=== PATIENT | male | born 1950 | race Caucasian/White ===

== ENCOUNTER 2019-08-27 23:39 | Emergency (ER) | payer MEDICARE, OTHER ==
[~2019-08-27] VITALS: Ht 177.8 cm; Wt 99.8 kg
[~2019-08-27 23:39] MED LIST: ATORVASTATIN CA20 MG; CIPRO500 MG PO; CRESTOR20 MG; ESIDRIX25 MG; FLAGYL500 MG PO; LANTUS 3ML100 UNITS/; LANTUS100 UNITS/; LOPRESSOR25 MG PO; NEXIUM40 MG; OMEGA-3 ACID ETH1 GM; PROGRAF1 MG; TACROLIMUS0.5 MG; VASCEPA1 GM; ZESTRIL2.5 MG PO; ZOFRAN4 MG SL; ZORTRESS0.5 MG
--- OUTSIDE RECORDS SUMMARY | 2019-08-27 23:42 | XMS REPORT ---
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 Allergies, Adverse Reactions, Alerts This patient has no known allergies or adverse reactions. Medications This patient has no known medications. Results Test Description Test Time Test Comments Text Results Atomic Results Result Comments CT ABDOMEN/PELVIS W 2019-07-12 13:48:00 [place] [id number] [place] [id number] Patient Name: CHRISTOPHER PARTIDA MR #: [id number] : 1950 Age/Sex: 69/M Req #: [id number] Adm Physician: Ordered by: KIMMIE GALVAN DO Report #: [id number] Location: ER Room/Bed: Procedure: [id number] CT/CT ABDOMEN/PELVIS W Exam Date: Exam Time: REPORT STATUS: Signed CT scan of the abdomen and pelvis. Medical history: Diarrhea. Comparison study: None available. Technique: Contiguous focal slices were acquired through the abdomen and pelvis post demonstration of intravenous contrast. No oral contrast was administered. This exam was performed according to our department dose optimization program which includes automated exposure control, adjustment of the mA and/or kV according to the patient's size and/or use of iterative reconstruction technique. Findings: Atelectatic changes in the lung bases. There is a 2 mm nodule in the right lower lobe on image 8 for which no imaging follow-up is recommended in a low risk patient. The liver demonstrates atrophic changes in the left lobe with focal mild to moderate intrahepatic biliary dilatation within this lobe. The portal vein is patent measuring 1.4 cm. The gallbladder is absent. The CBD is normal in caliber. The spleen, pancreas, adrenal glands and kidneys are unremarkable. There are no dilated loops of bowel seen to suggest obstruction. However, multiple loops of bowel are fluid-filled most suggestive of an enterocolitis. A normal appendix is seen. There is no free fluid or free air. Aorta is normal in caliber. Atherosclerosis is seen. No suspicious adenopathy is noted. Bilateral small fat-containing 1 hernias are seen. Postsurgical changes are seen anteriorly related to ventral hernia repair. A 3.5 x 2.1 cm area of omental infarction is seen anteriorly. Seeds are seen in the prostate gland. Bone windows demonstrate degenerative changes. Impression: 1. Atrophic changes in the left lobe of the liver with mild to moderate biliary dilatation within this lobe. No definite cause is seen. This may be as result of a prior vascular injury. Clinical correlation is recommended. If there is outside imaging available, comparison could be made to document stability. 2. Status post cholecystectomy. 3. Fluid-filled loops of bowel with no definite evidence of obstruction. This can be seen with an enterocolitis. Signed by: Benjamin Odom MD on 07/12/2019 1:54 PM Dictated By: BENJAMIN ODOM MD [id number] Transcribed By: QUNITEN on 07/12/19 8001 COPY TO: KIMMIE GALVAN DO
[2019-08-28] MEDS ORDERED: OXYMETAZOLINE HCL 0.05% NAS 1 SPRAY BTL ONE ×2 (00:08→00:15)
[2019-08-28 01:54] VITALS: BP 144/81
== END 2019-08-28 01:59 | disposition home or self-care (01) ==
LOC: ER 23:39
DX: R04.0 Epistaxis (principal)
CPT/HCPCS: 99282

== ENCOUNTER 2021-09-24 15:34 | Emergency (ER) | payer MEDICARE, OTHER ==
[~2021-09-24] VITALS: Ht 177.8 cm; Wt 99.8 kg
[2021-09-24] MEDS ORDERED: SODIUM CHLORIDE 0.9% 1000ML 1,000 ML IV STA (15:46)
[2021-09-24] MEDS ORDERED: ONDANSETRON HCL INJ 2MG/ML 2ML 2 MG/ML VIAL IV STA (15:46)
[2021-09-24 16:09] LABS: BASOPHILS % 0.2 % (0.0-1.0); EOSINOPHILS % 0.7 % (0.0-6.0); HEMATOCRIT 41.6 % (38.2-49.6); HEMOGLOBIN 13.6 g/dL (14.0-18.0); LYMPHOCYTES # (AUTO) 0.6 (1.0-3.2); LYMPHOCYTES % 9.5 % (18.0-39.1); MEAN CORPUSCULAR HEMOGLOBIN 29.4 pg (28-32); MEAN CORPUSCULAR HGB CONC 32.7 g/dL (31-35); MONOCYTES # (AUTO) 0.7 (0.2-0.8); NEUTROPHILS # (AUTO) 4.8 (2.1-6.9); NEUTROPHILS % 78.3 % (38.7-80.0); PLATELET COUNT 174 x10e3/uL (140-360); RED BLOOD COUNT 4.62 x10e6/uL (4.3-5.7); RED CELL DISTRIBUTION WIDTH 14.8 % (11.7-14.4)
[2021-09-24 16:19] LABS: INR 1.2; PROTHROMBIN TIME 16.3 seconds (11.9-14.5)
[2021-09-24 16:20] LABS: PARTIAL THROMBOPLASTIN TIME 34.3 seconds (23.8-35.5)
[2021-09-24 16:30] LABS: ALBUMIN 3.5 g/dL (3.5-5.0); ALBUMIN/GLOBULIN RATIO 0.9 (0.8-2.0); ANION GAP 11.8 mmol/L (8-16); CALCIUM 8.8 mg/dL (8.4-10.2); CREATININE, SERUM 1.93 mg/dL (0.72-1.25); MAGNESIUM 1.2 MG/DL (1.3-2.1); POTASSIUM 3.8 mmol/L (3.5-5.1)
[2021-09-24 16:36] LABS: CREATINE KINASE MB 0.5 ng/mL (0-5.0)
[2021-09-24] MEDS ORDERED: MAGNESIUM SULFATE 2GM/50ML 50 ML IV ONE (16:45)
== END 2021-09-24 18:16 | disposition home or self-care (01) ==
LOC: ER 15:40
DX: R19.7 Diarrhea, unspecified (principal); E86.0 Dehydration; N28.9 Disorder of kidney and ureter, unspecified; Z94.4 Liver transplant status; I10 Essential (primary) hypertension; E11.9 Type 2 diabetes mellitus without complications; E78.5 Hyperlipidemia, unspecified; K21.9 Gastro-esophageal reflux disease without esophagitis
CPT/HCPCS: 36415; 70450; 71045; 80053; 82550; 82553; 83735; 83880; 84484; 85025; 85610; 85730; 93005; 99284; C9113; J2405; J3475; J7030

== ENCOUNTER 2024-04-04 09:32 | Emergency (ER) | payer MEDICARE, OTHER ==
[~2024-04-04] VITALS: Ht 177.8 cm; Wt 98.9 kg
[2024-04-04 09:52] VITALS: TEMP 97.7
[2024-04-04 10:43] LABS: BASOPHILS % 0.3 % (0.0-1.0); EOSINOPHILS # (AUTO) 0.1 (0.0-0.4); EOSINOPHILS % 1.3 % (0.0-6.0); HEMOGLOBIN 15.2 g/dL (14.0-18.0); LYMPHOCYTES # (AUTO) 1.3 (1.0-3.2); MEAN CORPUSCULAR HEMOGLOBIN 30.3 pg (28-32); MEAN CORPUSCULAR HGB CONC 31.7 g/dL (31-35); MEAN CORPUSCULAR VOLUME 95.6 fL (81-99); MONOCYTES # (AUTO) 0.9 (0.2-0.8); MONOCYTES % 8.5 % (4.4-11.3); NEUTROPHILS # (AUTO) 8.1 (2.1-6.9); NEUTROPHILS % 77.4 % (38.7-80.0); PLATELET COUNT 209 x10e3/uL (140-360); RED BLOOD COUNT 5.02 x10e6/uL (4.3-5.7); WHITE BLOOD COUNT 10.46 x10e3/uL (4.8-10.8)
[2024-04-04 10:55] LABS: INR 1.15; PROTHROMBIN TIME 15.3 seconds (11.9-14.5)
[2024-04-04 11:04] LABS: ALBUMIN 3.7 g/dL (3.5-5.0); ANION GAP 18.7 mmol/L (8-16); BILIRUBIN,TOTAL 0.8 mg/dL (0.2-1.2); CREATININE, SERUM 2.45 mg/dL (0.72-1.25); POTASSIUM 4.7 mmol/L (3.5-5.1); TOTAL PROTEIN 7.4 g/dL (6.5-8.1)
[2024-04-04 11:15] VITALS: PULSE 82; RESP 20; O2SAT 100
[2024-04-04 11:20] LABS: BILIRUBIN,URINE NEGATIVE (NEGATIVE); CLARITY,URINE CLEAR (CLEAR); COLOR,URINE YELLOW (YELLOW); GLUCOSE, URINE 1+ (NEGATIVE); KETONES,URINE NEGATIVE (NEGATIVE); LEUKOCYTE ESTERASE ,URINE NEGATIVE (NEGATIVE); NITRITE,URINE NEGATIVE (NEGATIVE); PH,URINE 6.5 (5 - 7); PROTEIN,URINE DIPSTICK 1+ (NEGATIVE); URINE UROBILINOGEN 0.2 mg/dL (0.2 - 1); WBC,URINE (MAN) 0-5 /HPF (0-5)
[2024-04-04 11:21] LABS: BACTERIA,URINE FEW /HPF; EPITHELIAL CELLS,URINE FEW /LPF
== END 2024-04-04 12:51 | disposition home or self-care (01) ==
LOC: ER 09:45
DX: R41.0 Disorientation, unspecified (principal); I10 Essential (primary) hypertension; E11.65 Type 2 diabetes mellitus with hyperglycemia; E78.5 Hyperlipidemia, unspecified; K21.9 Gastro-esophageal reflux disease without esophagitis; Z94.4 Liver transplant status
CPT/HCPCS: 36415; 70450; 80053; 81001; 84484; 85025; 85610; 93005; 99284

== ENCOUNTER 2024-09-23 10:31 | Emergency (ER) | payer MEDICARE, OTHER ==
[~2024-09-23] VITALS: Ht 177.8 cm; Wt 98.9 kg
[2024-09-23 10:33] VITALS: TEMP 97.2
[2024-09-23] MEDS: FLUORESCEIN SOD(OPTH) 1 MG STRP OP ONE (13:16)
[2024-09-23] MEDS: EYE IRRIGATION (OPTH) 120 ML BTL OP ONE (13:16)
[2024-09-23] MEDS: TETRACAINE HCL 0.5% OPTH SOLN 4 ML BTL OP ONE (13:16)
[2024-09-23] MEDS ORDERED: POLYMYXIN B-TMP10 ML OD (13:35)
[2024-09-23] MEDS ORDERED: HYDROCODON-ACE1 EA11 PO (13:35)
[2024-09-23 13:48] VITALS: PULSE 61; RESP 16; O2SAT 100
== END 2024-09-23 13:55 | disposition home or self-care (01) ==
LOC: ER 10:46
DX: S05.01XA Injury of conjunctiva and corneal abrasion without foreign body, right eye, initial encounter (principal); W01.198A Fall on same level from slipping, tripping and stumbling with subsequent striking against other object, initial encounter; Y93.01 Activity, walking, marching and hiking; Y92.89 Other specified places as the place of occurrence of the external cause; I10 Essential (primary) hypertension; E11.9 Type 2 diabetes mellitus without complications; E78.5 Hyperlipidemia, unspecified; K21.9 Gastro-esophageal reflux disease without esophagitis; Z94.4 Liver transplant status
CPT/HCPCS: 70450; 70486; 72125; 99284

== ENCOUNTER 2025-04-07 09:04 | Observation (INO) | payer MEDICARE, OTHER ==
[~2025-04-07] VITALS: Ht 177.8 cm; Wt 97.5 kg
[~2025-04-07 09:04] MED LIST changes: +HYDROCODON-ACE1 EA11 PO; +POLYMYXIN B-TMP10 ML OD
[2025-04-07 09:10] VITALS: TEMP 98.6
[2025-04-07 09:47] LABS: BASOPHILS % 0.2 % (0.0-1.0); EOSINOPHILS % 0.7 % (0.0-6.0); LYMPHOCYTES % 11.0 % (18.0-39.1); MONOCYTES % 10.9 % (4.4-11.3); NEUTROPHILS % 76.7 % (38.7-80.0); RED CELL DISTRIBUTION WIDTH 15.7 % (11.7-14.4)
[2025-04-07 10:07] LABS: EST GLOMERULAR FILTRATION RATE 33.0 ML/MIN (>=60); INR 1.05
[2025-04-07] MEDS: SODIUM CHLORIDE 0.9% 1000ML 1,000 ML IV STA (10:08)
[2025-04-07] MEDS: DILTIAZEM HCL 5 MG/ML 5 ML VIAL IV STA (10:08)
[2025-04-07] MEDS: DIGOXIN INJ 0.25 MG/ML 2 ML AMP IV ONE (10:10)
[2025-04-07] MEDS ORDERED: METOPROLOL TARTRATE 25 MG TAB ONE (10:33)
[2025-04-07] MEDS: METOPROLOL TARTRATE 25 MG TAB PO ONE (10:36)
[2025-04-07] MEDS ORDERED: Morphine 2mg Syringe 2 MG/ML SYR IV PRN (11:15)
[2025-04-07] MEDS ORDERED: ONDANSETRON HCL INJ 2MG/ML 2ML 2 MG/ML VIAL IV PRN (11:15)
[2025-04-07 13:48] LABS: LEUKOCYTE ESTERASE ,URINE NEGATIVE (NEGATIVE); PROTEIN,URINE DIPSTICK 2+ (NEGATIVE); URINE UROBILINOGEN 0.2 mg/dL (0.2 - 1)
[2025-04-07 14:00] LABS: EPITHELIAL CELLS,URINE RARE /LPF; HYALINE CASTS 0-1 (0-1); WBC,URINE (MAN) 0-5 /HPF (0-5)
[2025-04-07] MEDS ORDERED: TACROLIMUS 0.5 MG CAP PO SCH (17:15)
[2025-04-07] MEDS: METOPROLOL TARTRATE 25 MG TAB PO SCH (17:17)
[2025-04-07 17:30] VITALS: PULSE 80; RESP 18
[2025-04-07] MEDS ORDERED: DEXTROSE 50% SYRINGE 50 ML IV PRN (17:30)
[2025-04-07 20:23] VITALS: BP 127/90; PULSE 65; RESP 18; TEMP 99; O2SAT 100
[2025-04-07] MEDS ORDERED: POLYETHYLENE GLYCOL 3350 17 GM PACK PO PRN (20:30)
[2025-04-07] MEDS ORDERED: ACETAMINOPHEN 325 MG TAB PO PRN (20:30)
[2025-04-07] MEDS: ATORVASTATIN 20 MG TAB PO SCH (20:59)
[2025-04-07] MEDS: INSULIN LISPRO 100 UNIT/1 ML 3ML VIAL SQ SCH (21:05)
[2025-04-07 23:07] VITALS: BP 127/90; PULSE 65; RESP 18; TEMP 99; O2SAT 100
[2025-04-07 23:12] VITALS: BP 127/90; PULSE 65; RESP 18; TEMP 99; O2SAT 100
[2025-04-08 00:31] VITALS: BP 138/79; PULSE 63; RESP 16; TEMP 97.9; O2SAT 99
[2025-04-08 05:28] LABS: BASOPHILS % 0.8 % (0.0-1.0); EOSINOPHILS % 1.8 % (0.0-6.0); LYMPHOCYTES % 16.7 % (18.0-39.1); MONOCYTES % 9.9 % (4.4-11.3); NEUTROPHILS % 70.2 % (38.7-80.0); RED CELL DISTRIBUTION WIDTH 15.8 % (11.7-14.4)
[2025-04-08 05:59] LABS: CHOL/HDL RATIO 2.8 (3.9-4.7); EST GLOMERULAR FILTRATION RATE 35.0 ML/MIN (>=60); LDL CHOLESTEROL 52.0 MG/DL (60-130)
[2025-04-08 06:25] VITALS: BP 149/75; PULSE 62; RESP 18; TEMP 98.2; O2SAT 98
[2025-04-08 09:00] VITALS: BP 125/72; PULSE 65; RESP 18; TEMP 98.1; O2SAT 100
[2025-04-08] MEDS: HYDROCHLOROTHIAZIDE 25 MG TAB PO SCH (09:17)
[2025-04-08] MEDS: PANTOPRAZOLE SOD 40 MG TABEC PO ONE (09:18)
[2025-04-08] MEDS: APIXABAN 5 MG TABLET PO SCH (09:18)
[2025-04-08] MEDS: DOCUSATE SODIUM 100 MG CAP PO SCH (09:18)
[2025-04-08] MEDS: TACROLIMUS 0.5 MG CAP PO SCH (09:18)
[2025-04-08 09:22] VITALS: BP 125/72; PULSE 61; RESP 19; TEMP 98.1; O2SAT 100
[2025-04-08 12:49] VITALS: BP 118/65; PULSE 62; RESP 20; TEMP 97.7; O2SAT 95
[2025-04-08 16:55] VITALS: BP 137/80; PULSE 59; RESP 19; TEMP 98.6; O2SAT 100
== END 2025-04-08 15:50 | disposition home or self-care (01) ==
LOC: EDBD 09:04 → ER 09:18 → ERHOLD 11:06 → MED/SURG2 18:05
PROVIDERS: ADMIT Internal Medicine; ATTEND Internal Medicine
DX: I48.20 Chronic atrial fibrillation, unspecified (principal); K72.10 Chronic hepatic failure without coma; K74.60 Unspecified cirrhosis of liver; R55 Syncope and collapse; R53.1 Weakness; D84.821 Immunodeficiency due to drugs; Z94.4 Liver transplant status; Z79.01 Long term (current) use of anticoagulants; I10 Essential (primary) hypertension; G90.A Postural orthostatic tachycardia syndrome [POTS]; E78.5 Hyperlipidemia, unspecified; K21.9 Gastro-esophageal reflux disease without esophagitis; Z79.60 Long term (current) use of unspecified immunomodulators and immunosuppressants; Z79.899 Other long term (current) drug therapy
CPT/HCPCS: 36415 ×2; 70450; 71045; 80053 ×2; 80061; 81001; 82550 ×2; 82948 ×2; 83735; 83880; 84443; 84484 ×2; 85025 ×2; 85610; 85730; 87086; 93005; 99284; G0378 ×2; J2470; J7030; J1160